=== PATIENT | female | born 1930 | race Caucasian/White ===

== ENCOUNTER 2017-07-03 18:21 | Inpatient (IN) | payer MEDICARE, OTHER ==
[~2017-07-03] VITALS: Ht 160 cm; Wt 59.9 kg
[~2017-07-03 18:21] MED LIST: ACET-1304 PO; ALBUAER3 IN; DICL1.3D21 TOP; ESOM20CA PO; FEXO-42 PO; GABA300C PO; MOME100A INH; NOR10T PO
[2017-07-03 19:16] LABS: Basophils # (auto) 0.1 uL; Basophils % (auto) 0.5 % (0.0-2.0); CONDITION Y; Eosinophils # (auto) 0.1 uL; Eosinophils % (auto) 0.6 % (0.0-7.0); Hemoglobin 12.3 g/dL (12.2-16.2); Lymphocytes # (auto) 3.5 uL; Lymphocytes % (auto) 28.7 % (10.0-50.0); Mean Corpuscular Hemoglobin 32.6 pg (28.0-32.0); Mean Corpuscular Volume 95.7 fL (80.0-100.0); Mean Platelet Volume 8.8 fL (7.4-10.4); Monocytes # (auto) 0.9 uL; Monocytes % (auto) 7.3 % (0.0-12.0); Neutrophils # (auto) 7.6 uL; Neutrophils % (auto) 62.9 % (37.0-80.0); Platelet Count (auto) 123 10^3/uL (140-450); Red Cell Distribution Width 14.5 % (11.6-16.0); SUSPECT SEE PRINTOUT
[2017-07-03 19:25] LABS: Albumin 3.7 g/dL (3.4-5.0); BUN/Creatinine Ratio 10.8; Bilirubin, Total 0.4 mg/dL (0.2-1.0); Calcium 8.9 mg/dL (8.5-10.1); Potassium 3.6 mmol/L (3.5-5.1); Total Protein 7.5 g/dL (6.4-8.2)
[2017-07-03] MEDS ORDERED: SODIUM CHLORIDE 0.9% 1,000 ML IVB ONE (20:36)
[2017-07-03 20:49] LABS: Urine RBC None Seen /hpf (0 - 4)
[2017-07-03 21:04] LABS: Urine Bilirubin Negative (Negative); Urine Blood Negative /uL (Negative); Urine Color Yellow (Yellow); Urine Glucose Normal (Normal); Urine Ketone Negative (Negative); Urine Nitrite Negative (Negative); Urine Urobilinogen Normal (Negative); Urine pH 7.5 (5.0-8.0)
[2017-07-03 21:07] LABS: Magnesium 2.4 mg/dL (1.6-2.6)
[2017-07-03 21:23] LABS: INR 0.88 (0.9-1.15); Partial Thromboplastin Time 22.6 sec (22.64-33.71); Prothrombin Time 9.6 sec (9.37-12.3)
[2017-07-03 21:34] LABS: Acetaminophen < 2.0 ug/mL (10-30); Salicylate < 1.7 mg/dL (2.8-20.0)
[2017-07-03 21:42] LABS: Platelet Clumps MANY
[2017-07-03] MEDS: SODIUM CHLORIDE 0.9% 1,000 ML IV SCH (23:03)
[2017-07-03] MEDS ORDERED: MORPHINE SULF INJ 2 MG/ML SYRINGE 1ML IV PRN (23:15)
[2017-07-03] MEDS ORDERED: ALBUTEROL SULF 2.5 MG/0.5ML(0.5%) NEB SOLN NEB PRN (23:15)
[2017-07-03] MEDS ORDERED: ACETAMINOPHEN 325 MG TAB PO PRN (23:15)
[2017-07-03] MEDS ORDERED: NITROGLYCERIN 0.4 MG SL TAB SL PRN (23:15)
[2017-07-03] MEDS ORDERED: ONDANSETRON HCL 4 MG/2 ML VIAL IV PRN (23:15)
[2017-07-04] MEDS: HYDROcodone-ACET 5/325MG TAB PO PRN ×2 (01:29→10:35)
[2017-07-04 04:24] LABS: Basophils # (auto) 0.1 uL; Eosinophils # (auto) 0 uL; Eosinophils % (auto) 0.4 % (0.0-7.0); Hematocrit 30.9 % (36.0-46.0); Hemoglobin 10.3 g/dL (12.2-16.2); Lymphocytes # (auto) 1.8 uL; Lymphocytes % (auto) 26.1 % (10.0-50.0); Mean Corpuscular Hemoglobin 32.7 pg (28.0-32.0); Mean Corpuscular Hgb Conc. 33.5 g/dL (32.0-36.0); Mean Corpuscular Volume 97.5 fL (80.0-100.0); Mean Platelet Volume 8.4 fL (7.4-10.4); Monocytes # (auto) 0.5 uL; Monocytes % (auto) 7.2 % (0.0-12.0); Neutrophils # (auto) 4.6 uL; Neutrophils % (auto) 65.3 % (37.0-80.0); Platelet Count (auto) 203 10^3/uL (140-450); Red Cell Distribution Width 13.6 % (11.6-16.0)
[2017-07-04 04:41] VITALS: BP 126/70
[2017-07-04 04:43] LABS: Potassium 4.2 mmol/L (3.5-5.1)
[2017-07-04 04:48] LABS: Albumin 3.2 g/dL (3.4-5.0); BUN/Creatinine Ratio 10.2; Bilirubin, Total 0.7 mg/dL (0.2-1.0); Calcium 8.5 mg/dL (8.5-10.1); Total Protein 6.2 g/dL (6.4-8.2)
[2017-07-04 09:00] VITALS: BP 158/71
[2017-07-04] MEDS ORDERED: FAMOTIDINE 20 MG TAB PO SCH (10:00)
[2017-07-04] MEDS ORDERED: GABAPENTIN 300 MG CAP PO SCH (10:00)
[2017-07-04] MEDS ORDERED: ENOXAPARIN SOD 40 MG/0.4 ML SYRINGE SC SCH (10:00)
[2017-07-04 10:57] VITALS: BP 158/71
[2017-07-04 13:00] VITALS: BP 152/77
[2017-07-04] MEDS: SODIUM CHLORIDE 0.9% 1,000 ML IV SCH (15:43)
[2017-07-04 17:00] VITALS: BP 136/69
== END 2017-07-04 18:55 | disposition home or self-care (01) | DRG 917 ==
LOC: EDBD 18:21 → ER 18:21 → TELE 18:22 → TELE-EAST 07-04 09:11
PROVIDERS: ADMIT Nurse Practitioner; ATTEND Family Medicine
DX: T40.2X1A Poisoning by other opioids, accidental (unintentional), initial encounter (principal); G93.41 Metabolic encephalopathy; N39.0 Urinary tract infection, site not specified; J44.9 Chronic obstructive pulmonary disease, unspecified; R41.0 Disorientation, unspecified; F17.200 Nicotine dependence, unspecified, uncomplicated; G89.29 Other chronic pain; I10 Essential (primary) hypertension; M54.5 Low back pain; K21.9 Gastro-esophageal reflux disease without esophagitis; I70.8 Atherosclerosis of other arteries; T40.2X5A Adverse effect of other opioids, initial encounter; Z90.49 Acquired absence of other specified parts of digestive tract; Z90.710 Acquired absence of both cervix and uterus; Y92.89 Other specified places as the place of occurrence of the external cause; Z87.440 Personal history of urinary (tract) infections
CPT/HCPCS: 36415; 51702; 70450; 71010; 71250; 80053; 80307; 80320; 80329; 81001; 82962; 83605; 83735; 84484; 85025; 85610; 85730; 87040; 87086; 93005; 94761; 96360

== ENCOUNTER → 2017-07-11 | Outpatient (CLI) | payer MEDICARE, OTHER ==
[2017-07-11 14:30] LABS: Temperature: 21.7 C (20.0-25.0)
== END | disposition home or self-care (01) ==
LOC: LAB 13:21
PROVIDERS: ATTEND Psychiatry & Neurology Neurology
DX: G30.9 Alzheimer's disease, unspecified (principal); R25.1 Tremor, unspecified; E53.8 Deficiency of other specified B group vitamins
CPT/HCPCS: 36415; 82607; 82746; 84439; 84443

== ENCOUNTER 2018-03-10 19:44 | Inpatient (IN) | payer MEDICARE, OTHER ==
[~2018-03-10] VITALS: Ht 157.5 cm; Wt 65.0 kg
[2018-03-10] MEDS ORDERED: LORazepam 2MG/ML-1ML VIAL ONE (21:03)
[2018-03-10] MEDS ORDERED: LORazepam 2MG/ML-1ML VIAL IV ONE (21:15)
[2018-03-10 21:29] LABS: Basophils # (auto) 0.1 uL; Basophils % (auto) 0.6 % (0.0-2.0); Eosinophils # (auto) 0 uL; Eosinophils % (auto) 0.3 % (0.0-7.0); Hematocrit 34.9 % (36.0-46.0); Hemoglobin 11.7 g/dL (12.2-16.2); Lymphocytes # (auto) 1.3 uL; Lymphocytes % (auto) 12.8 % (10.0-50.0); Mean Corpuscular Hemoglobin 31.7 pg (28.0-32.0); Mean Corpuscular Hgb Conc. 33.4 g/dL (32.0-36.0); Mean Corpuscular Volume 94.9 fL (80.0-100.0); Monocytes # (auto) 0.3 uL; Monocytes % (auto) 2.6 % (0.0-12.0); Neutrophils # (auto) 8.6 uL; Neutrophils % (auto) 83.7 % (37.0-80.0); Platelet Count (auto) 298 10^3/uL (140-450); Red Blood Cells 3.68 10^6/uL (4.0-5.20); Red Cell Distribution Width 13.2 % (11.8-14.3); White Blood Cell 10.2 10^3/uL (4.4-10.8)
[2018-03-10 21:48] LABS: Acetaminophen < 2.0 ug/mL (10-30); Salicylate < 1.7 mg/dL (2.8-20.0)
[2018-03-10 21:53] LABS: Alanine Aminotransferase 19 U/L (13-56); Albumin 3.7 g/dL (3.4-5.0); Alkaline Phosphatase 73 U/L (45-117); Anion Gap 10 (5-15); Aspartate Aminotransferase 22 U/L (15-37); BUN/Creatinine Ratio 11.9; Bilirubin, Total 0.5 mg/dL (0.2-1.0); Blood Alcohol < 3.0 mg/dL (0-5); Blood Urea Nitrogen 13 mg/dL (7-18); Calcium 8.7 mg/dL (8.5-10.1); Carbon Dioxide 26 mmol/L (21-32); Chloride 100 mmol/L (98-107); GFR African American 61 mL/min; GFR Non-African American 50 mL/min; Glucose 99 mg/dL (74-106); Magnesium 2.4 mg/dL (1.6-2.6); Potassium 3.2 mmol/L (3.5-5.1); Sodium 136 mmol/L (136-145); Total Protein 7.4 g/dL (6.4-8.2)
[2018-03-10 22:13] LABS: Urine Bacteria FEW /hpf (None Seen); Urine Blood Negative /uL (Negative); Urine WBC 9 /hpf (0 - 5)
[2018-03-10 22:28] LABS: Alcohol, Urine < 3.0 mg/dL (0-5); Amphetamine Screen, Urine NEGATIVE (NEGATIVE); Barbiturate Scree,Urine NEGATIVE (NEGATIVE); Benzodiazephine Screen, Urine NEGATIVE (NEGATIVE); Cannabinoid Screen, Urine NEGATIVE (NEGATIVE); Cocaine Screen, Urine NEGATIVE (NEGATIVE); Opiate Scree,Urine POSITIVE (NEGATIVE); Phencyclidine Screen, Urine NEGATIVE (NEGATIVE)
[2018-03-10] MEDS ORDERED: ASPirin 81 mg TAB PO ONE (23:45)
[2018-03-11] MEDS ORDERED: SODIUM CHLORIDE 0.9% 1,000 ML IV ONE (00:15)
[2018-03-11] MEDS ORDERED: NITROGLYCERIN 0.4 MG SL TAB SL PRN (00:15)
[2018-03-11] MEDS ORDERED: MORPHINE SULFATE 4 MG/ML SYR/VIAL IV PRN (00:15)
[2018-03-11] MEDS ORDERED: ONDANSETRON HCL 4 MG/2 ML VIAL IV PRN (00:15)
[2018-03-11] MEDS ORDERED: cefTRIAXone 1GM/10ml IVPUSH 10 ML IV ONE ×2 (00:15→13:15)
[2018-03-11 04:23] LABS: Basophils # (auto) 0 uL; Basophils % (auto) 0.6 % (0.0-2.0); Eosinophils # (auto) 0 uL; Eosinophils % (auto) 0.3 % (0.0-7.0); Hematocrit 33.6 % (36.0-46.0); Hemoglobin 10.9 g/dL (12.2-16.2); Lymphocytes # (auto) 2.2 uL; Lymphocytes % (auto) 26.7 % (10.0-50.0); Mean Corpuscular Hemoglobin 31.6 pg (28.0-32.0); Mean Corpuscular Hgb Conc. 32.4 g/dL (32.0-36.0); Mean Corpuscular Volume 97.5 fL (80.0-100.0); Monocytes # (auto) 0.7 uL; Monocytes % (auto) 7.9 % (0.0-12.0); Neutrophils # (auto) 5.4 uL; Neutrophils % (auto) 64.5 % (37.0-80.0); Nucleated Red Blood Cells % 0.1 %; Platelet Count (auto) 305 10^3/uL (140-450); Red Blood Cells 3.44 10^6/uL (4.0-5.20); Red Cell Distribution Width 13.6 % (11.8-14.3); White Blood Cell 8.4 10^3/uL (4.4-10.8)
[2018-03-11 04:36] LABS: Calcium 8.4 mg/dL (8.5-10.1); Potassium 3.6 mmol/L (3.5-5.1)
[2018-03-11 06:56] VITALS: BP 101/56
[2018-03-11] MEDS: ASPirin-EC 81 mg tab PO SCH (10:30)
[2018-03-11] MEDS: GABAPENTIN 300 MG CAP PO SCH ×2 (13:57→22:16)
[2018-03-11 18:10] VITALS: BP 146/74
[2018-03-11] MEDS ORDERED: OME20T PO (18:45)
[2018-03-11] MEDS ORDERED: FLUT250M2 INH (18:45)
[2018-03-11] MEDS ORDERED: CYA100I IM (18:45)
[2018-03-11] MEDS ORDERED: DONE5TAB11 PO (18:45)
[2018-03-11] MEDS ORDERED: DICL1GEL26 TD (18:45)
[2018-03-11] MEDS ORDERED: FEXO24TA9 PO (18:45)
[2018-03-11] MEDS: HYDROcodone-ACET 5/325MG TAB PO PRN (18:58)
[2018-03-11 19:50] VITALS: BP 136/78
[2018-03-11] MEDS: DONEPEZIL HYDROCHLORIDE 5 MG TAB PO SCH (22:15)
[2018-03-11] MEDS: METOPROLOL TARTRATE 25 MG TAB PO SCH (22:16)
[2018-03-12] VITALS: BP 137/64
[2018-03-12 04:00] VITALS: BP 148/67
[2018-03-12 05:53] LABS: Basophils # (auto) 0.1 uL; Basophils % (auto) 0.8 % (0.0-2.0); Eosinophils # (auto) 0.1 uL; Eosinophils % (auto) 0.8 % (0.0-7.0); Hematocrit 34.4 % (36.0-46.0); Hemoglobin 11.4 g/dL (12.2-16.2); Lymphocytes % (auto) 26.8 % (10.0-50.0); Mean Corpuscular Hemoglobin 31.5 pg (28.0-32.0); Mean Corpuscular Hgb Conc. 33.1 g/dL (32.0-36.0); Mean Corpuscular Volume 95.2 fL (80.0-100.0); Monocytes # (auto) 0.5 uL; Monocytes % (auto) 7.1 % (0.0-12.0); Neutrophils # (auto) 4.8 uL; Neutrophils % (auto) 64.5 % (37.0-80.0); Platelet Count (auto) 319 10^3/uL (140-450); Red Blood Cells 3.61 10^6/uL (4.0-5.20); Red Cell Distribution Width 13.4 % (11.8-14.3); White Blood Cell 7.4 10^3/uL (4.4-10.8)
[2018-03-12] MEDS: GABAPENTIN 300 MG CAP PO SCH ×3 (06:01→21:27)
[2018-03-12 06:02] LABS: Albumin 3.1 g/dL (3.4-5.0); BUN/Creatinine Ratio 10.6; Calcium 8.7 mg/dL (8.5-10.1); Potassium 3.3 mmol/L (3.5-5.1)
[2018-03-12] MEDS: MORPHINE SULFATE 4 MG/ML SYR/VIAL IV PRN (06:03)
[2018-03-12 06:05] LABS: Bilirubin, Total 0.5 mg/dL (0.2-1.0); Total Protein 6.5 g/dL (6.4-8.2)
[2018-03-12 08:00] VITALS: BP 147/70
[2018-03-12] MEDS: cefTRIAXone 1GM/10ml IVPUSH 10 ML IV SCH (09:26)
[2018-03-12] MEDS: ASPirin-EC 81 mg tab PO SCH (10:23)
[2018-03-12] MEDS: ENOXAPARIN SOD 30 MG/0.3 ML SYRINGE SC SCH (10:23)
[2018-03-12] MEDS: METOPROLOL TARTRATE 25 MG TAB PO SCH ×2 (10:24→21:26)
[2018-03-12] MEDS: HYDROcodone-ACET 5/325MG TAB PO PRN ×2 (10:24→16:59)
[2018-03-12] MEDS ORDERED: POTASSIUM CHLORIDE 8 MEQ TAB PO ONE (10:45)
[2018-03-12 11:50] VITALS: BP 148/88
[2018-03-12] MEDS ORDERED: BOOST PLUS 8 ounce PO SCH (12:00)
[2018-03-12 15:49] VITALS: BP 137/75
[2018-03-12] MEDS: ALBUTEROL SULF 2.5 MG/0.5ML(0.5%) NEB SOLN NEB PRN (18:11)
[2018-03-12 19:50] VITALS: BP 144/61
[2018-03-12] MEDS: DONEPEZIL HYDROCHLORIDE 5 MG TAB PO SCH (21:26)
[2018-03-12] MEDS: ACETAMINOPHEN 500 MG TAB PO PRN (21:27)
[2018-03-13] VITALS: BP 128/60
[2018-03-13] MEDS: HYDROcodone-ACET 5/325MG TAB PO PRN ×3 (03:31→12:08)
[2018-03-13 04:00] VITALS: BP 140/68
[2018-03-13] MEDS: GABAPENTIN 300 MG CAP PO SCH ×3 (05:55→22:00)
[2018-03-13 05:59] LABS: Basophils # (auto) 0.1 uL; Basophils % (auto) 1.2 % (0.0-2.0); Eosinophils # (auto) 0.1 uL; Eosinophils % (auto) 1.1 % (0.0-7.0); Hematocrit 34.4 % (36.0-46.0); Hemoglobin 11.3 g/dL (12.2-16.2); Lymphocytes # (auto) 2.1 uL; Lymphocytes % (auto) 29.2 % (10.0-50.0); Mean Corpuscular Hemoglobin 31.3 pg (28.0-32.0); Mean Corpuscular Hgb Conc. 32.9 g/dL (32.0-36.0); Mean Corpuscular Volume 94.9 fL (80.0-100.0); Monocytes # (auto) 0.6 uL; Neutrophils # (auto) 4.3 uL; Neutrophils % (auto) 60.5 % (37.0-80.0); Platelet Count (auto) 308 10^3/uL (140-450); Red Blood Cells 3.62 10^6/uL (4.0-5.20); Red Cell Distribution Width 13.4 % (11.8-14.3); White Blood Cell 7.2 10^3/uL (4.4-10.8)
[2018-03-13 06:26] LABS: Albumin 3.1 g/dL (3.4-5.0); BUN/Creatinine Ratio 12.8; Bilirubin, Total 0.6 mg/dL (0.2-1.0); Calcium 8.8 mg/dL (8.5-10.1); Potassium 3.5 mmol/L (3.5-5.1); Total Protein 6.6 g/dL (6.4-8.2)
[2018-03-13 07:37] VITALS: BP 158/65
[2018-03-13] MEDS: cefTRIAXone 1GM/10ml IVPUSH 10 ML IV SCH (07:48)
[2018-03-13] MEDS: ASPirin-EC 81 mg tab PO SCH (10:13)
[2018-03-13] MEDS: ENOXAPARIN SOD 30 MG/0.3 ML SYRINGE SC SCH (10:13)
[2018-03-13] MEDS: METOPROLOL TARTRATE 25 MG TAB PO SCH ×2 (10:13→22:00)
[2018-03-13 11:56] VITALS: BP 159/81
[2018-03-13] MEDS ORDERED: PANTOPRAZOLE 40 MG TAB PO ONE (15:00)
[2018-03-13 15:49] VITALS: BP 142/84
[2018-03-13 19:48] VITALS: BP 135/77
[2018-03-13] MEDS: FLECTOR 1.3% TD SCH (22:00)
[2018-03-13] MEDS: DONEPEZIL HYDROCHLORIDE 5 MG TAB PO SCH (22:00)
[2018-03-14] VITALS (7 sets, daily range): BP systolic 104–135; BP diastolic 46–75
[2018-03-14] MEDS ORDERED: MORPHINE SULFATE INJECTION 1 ML ONE (05:12)
[2018-03-14 05:19] LABS: Basophils # (auto) 0.1 uL; Basophils % (auto) 1.1 % (0.0-2.0); Eosinophils # (auto) 0.1 uL; Eosinophils % (auto) 1.2 % (0.0-7.0); Hematocrit 35.3 % (36.0-46.0); Hemoglobin 11.8 g/dL (12.2-16.2); Lymphocytes # (auto) 2.6 uL; Lymphocytes % (auto) 27.4 % (10.0-50.0); Mean Corpuscular Hemoglobin 31.8 pg (28.0-32.0); Mean Corpuscular Hgb Conc. 33.5 g/dL (32.0-36.0); Mean Corpuscular Volume 95.1 fL (80.0-100.0); Monocytes # (auto) 0.9 uL; Neutrophils # (auto) 5.9 uL; Neutrophils % (auto) 61.3 % (37.0-80.0); Platelet Count (auto) 275 10^3/uL (140-450); Red Blood Cells 3.72 10^6/uL (4.0-5.20); Red Cell Distribution Width 13.2 % (11.8-14.3); White Blood Cell 9.6 10^3/uL (4.4-10.8)
[2018-03-14] MEDS: MORPHINE SULFATE 4 MG/ML SYR/VIAL IV PRN (05:20)
[2018-03-14 05:31] LABS: Albumin 3.1 g/dL (3.4-5.0); Calcium 9.1 mg/dL (8.5-10.1); Potassium 3.7 mmol/L (3.5-5.1)
[2018-03-14 05:33] LABS: BUN/Creatinine Ratio 10.8
[2018-03-14 05:38] LABS: Bilirubin, Total 0.5 mg/dL (0.2-1.0); Total Protein 6.9 g/dL (6.4-8.2)
[2018-03-14] MEDS: GABAPENTIN 300 MG CAP PO SCH ×3 (05:44→21:33)
[2018-03-14] MEDS: ENOXAPARIN SOD 30 MG/0.3 ML SYRINGE SC SCH (09:54)
[2018-03-14] MEDS: PANTOPRAZOLE 40 MG TAB PO SCH (09:55)
[2018-03-14] MEDS: ASPirin-EC 81 mg tab PO SCH (09:55)
[2018-03-14] MEDS: cefTRIAXone 1GM/10ml IVPUSH 10 ML IV SCH (09:56)
[2018-03-14] MEDS: METOPROLOL TARTRATE 25 MG TAB PO SCH ×2 (09:56→21:33)
[2018-03-14] MEDS: FLECTOR 1.3% TD SCH (09:57)
[2018-03-14] MEDS: ACETAMINOPHEN 500 MG TAB PO PRN (11:18)
[2018-03-14] MEDS: HYDROcodone-ACET 5/325MG TAB PO PRN ×2 (14:56→21:42)
[2018-03-14] MEDS: ATORVASTATIN 20 MG TAB PO SCH (21:32)
[2018-03-14] MEDS: DONEPEZIL HYDROCHLORIDE 5 MG TAB PO SCH (21:32)
[2018-03-15] MEDS: ALBUTEROL SULF 2.5 MG/0.5ML(0.5%) NEB SOLN NEB PRN (00:43)
[2018-03-15 05:16] VITALS: BP 129/54
[2018-03-15] MEDS: GABAPENTIN 300 MG CAP PO SCH ×3 (05:19→21:31)
[2018-03-15] MEDS: HYDROcodone-ACET 5/325MG TAB PO PRN ×3 (05:20→21:31)
[2018-03-15 07:34] VITALS: BP 122/70
[2018-03-15] MEDS: FLECTOR 1.3% TD SCH (10:00)
[2018-03-15] MEDS: ASPirin-EC 81 mg tab PO SCH (10:44)
[2018-03-15] MEDS: METOPROLOL TARTRATE 25 MG TAB PO SCH ×2 (10:46→21:31)
[2018-03-15] MEDS: ENOXAPARIN SOD 30 MG/0.3 ML SYRINGE SC SCH (10:46)
[2018-03-15] MEDS: PANTOPRAZOLE 40 MG TAB PO SCH (10:46)
[2018-03-15 11:50] VITALS: BP 116/68
[2018-03-15 16:35] VITALS: BP 136/90
[2018-03-15] MEDS: DONEPEZIL HYDROCHLORIDE 5 MG TAB PO SCH (21:30)
[2018-03-15] MEDS: ATORVASTATIN 20 MG TAB PO SCH (21:30)
[2018-03-15 22:04] VITALS: BP 131/55
[2018-03-16] MEDS: ALBUTEROL SULF 2.5 MG/0.5ML(0.5%) NEB SOLN NEB PRN ×3 (00:40→19:12)
[2018-03-16 05:16] VITALS: BP 117/70
[2018-03-16] MEDS: GABAPENTIN 300 MG CAP PO SCH ×3 (05:47→22:10)
[2018-03-16] MEDS: HYDROcodone-ACET 5/325MG TAB PO PRN ×4 (05:47→22:25)
[2018-03-16 08:00] VITALS: BP 119/66
[2018-03-16] MEDS: PANTOPRAZOLE 40 MG TAB PO SCH (10:23)
[2018-03-16] MEDS: ASPirin-EC 81 mg tab PO SCH (10:23)
[2018-03-16] MEDS: METOPROLOL TARTRATE 25 MG TAB PO SCH ×2 (10:23→22:12)
[2018-03-16] MEDS: ENOXAPARIN SOD 30 MG/0.3 ML SYRINGE SC SCH (10:24)
[2018-03-16] MEDS: FLECTOR 1.3% TD SCH (10:25)
[2018-03-16 13:01] VITALS: BP 118/67
[2018-03-16 16:33] VITALS: BP 171/89
[2018-03-16 17:23] VITALS: BP 121/65
[2018-03-16] MEDS: ACETAMINOPHEN 500 MG TAB PO PRN (20:09)
[2018-03-16 22:00] VITALS: BP 124/74
[2018-03-16] MEDS: ATORVASTATIN 20 MG TAB PO SCH (22:10)
[2018-03-16] MEDS: DONEPEZIL HYDROCHLORIDE 5 MG TAB PO SCH (22:10)
[2018-03-17 04:35] VITALS: BP 127/64
[2018-03-17] MEDS: GABAPENTIN 300 MG CAP PO SCH ×3 (06:27→22:15)
[2018-03-17] MEDS: ACETAMINOPHEN 500 MG TAB PO PRN (06:27)
[2018-03-17 07:17] VITALS: BP 127/64
[2018-03-17 09:00] VITALS: BP 119/57
[2018-03-17] MEDS ORDERED: MORPHINE SULFATE 8mg/ml INJ SDV IV PRN ×2 (09:30)
[2018-03-17] MEDS: PANTOPRAZOLE 40 MG TAB PO SCH (09:54)
[2018-03-17] MEDS: ASPirin-EC 81 mg tab PO SCH (09:54)
[2018-03-17] MEDS: METOPROLOL TARTRATE 25 MG TAB PO SCH ×2 (09:54→22:15)
[2018-03-17] MEDS: ENOXAPARIN SOD 30 MG/0.3 ML SYRINGE SC SCH (09:55)
[2018-03-17] MEDS: FLECTOR 1.3% TD SCH (09:56)
[2018-03-17 13:00] VITALS: BP 109/57
[2018-03-17 17:00] VITALS: BP 112/52
[2018-03-17] MEDS: HYDROcodone-ACET 5/325MG TAB PO PRN ×2 (17:08→22:43)
[2018-03-17] MEDS: BOOST PLUS 8 ounce PO SCH (18:00)
[2018-03-17 21:25] VITALS: BP 125/74
[2018-03-17] MEDS: DONEPEZIL HYDROCHLORIDE 5 MG TAB PO SCH (22:14)
[2018-03-17] MEDS: ATORVASTATIN 20 MG TAB PO SCH (22:14)
[2018-03-18] MEDS: HYDROcodone-ACET 5/325MG TAB PO PRN ×4 (04:26→21:31)
[2018-03-18 04:39] VITALS: BP 103/53
[2018-03-18] MEDS: GABAPENTIN 300 MG CAP PO SCH ×3 (05:55→21:27)
[2018-03-18] MEDS: ALBUTEROL SULF 2.5 MG/0.5ML(0.5%) NEB SOLN NEB PRN ×2 (07:58→17:46)
[2018-03-18] MEDS: BOOST PLUS 8 ounce PO SCH ×2 (08:00→18:00)
[2018-03-18 09:00] VITALS: BP 119/62
[2018-03-18] MEDS: ASPirin-EC 81 mg tab PO SCH (09:57)
[2018-03-18] MEDS: PANTOPRAZOLE 40 MG TAB PO SCH (09:57)
[2018-03-18] MEDS: ENOXAPARIN SOD 30 MG/0.3 ML SYRINGE SC SCH (09:57)
[2018-03-18] MEDS: METOPROLOL TARTRATE 25 MG TAB PO SCH ×2 (09:58→21:29)
[2018-03-18] MEDS: FLECTOR 1.3% TD SCH (09:58)
[2018-03-18 13:00] VITALS: BP 115/63
[2018-03-18 17:00] VITALS: BP 102/39
[2018-03-18] MEDS: ATORVASTATIN 20 MG TAB PO SCH (21:28)
[2018-03-18 21:57] VITALS: BP 104/55
[2018-03-18] MEDS: DONEPEZIL HYDROCHLORIDE 5 MG TAB PO SCH (22:00)
[2018-03-19] MEDS: HYDROcodone-ACET 5/325MG TAB PO PRN ×2 (03:49→13:53)
[2018-03-19 04:50] VITALS: BP 119/62
[2018-03-19] MEDS: GABAPENTIN 300 MG CAP PO SCH ×2 (07:00→13:52)
[2018-03-19 07:20] VITALS: BP 108/69
[2018-03-19] MEDS: BOOST PLUS 8 ounce PO SCH (08:00)
[2018-03-19] MEDS: ALBUTEROL SULF 2.5 MG/0.5ML(0.5%) NEB SOLN NEB PRN (09:20)
[2018-03-19] MEDS: ASPirin-EC 81 mg tab PO SCH (09:55)
[2018-03-19] MEDS: PANTOPRAZOLE 40 MG TAB PO SCH (09:55)
[2018-03-19] MEDS: ENOXAPARIN SOD 30 MG/0.3 ML SYRINGE SC SCH (09:56)
[2018-03-19] MEDS: FLECTOR 1.3% TD SCH (09:56)
[2018-03-19] MEDS: METOPROLOL TARTRATE 25 MG TAB PO SCH (10:00)
[2018-03-19 11:46] VITALS: BP 106/61
[2018-03-19 15:03] VITALS: BP 106/61
[2018-03-19 16:00] VITALS: BP 108/59
== END 2018-03-19 16:54 | DRG 281 ==
LOC: EDBD 19:44 → ER 19:51 → TELE 19:52 → DOU IN ICU 03-11 18:40 → TELE-WESTW 03-14 14:38
PROVIDERS: ADMIT Nurse Practitioner Family; ATTEND Internal Medicine Pulmonary Disease
DX: I21.4 Non-ST elevation (NSTEMI) myocardial infarction (principal); N39.0 Urinary tract infection, site not specified; E44.0 Moderate protein-calorie malnutrition; D68.69 Other thrombophilia; I47.1 Supraventricular tachycardia; J44.9 Chronic obstructive pulmonary disease, unspecified; E87.6 Hypokalemia; I12.9 Hypertensive chronic kidney disease with stage 1 through stage 4 chronic kidney disease, or unspecified chronic kidney disease; D63.8 Anemia in other chronic diseases classified elsewhere; F03.90 Unspecified dementia, unspecified severity, without behavioral disturbance, psychotic disturbance, mood disturbance, and anxiety; N18.2 Chronic kidney disease, stage 2 (mild); Z90.710 Acquired absence of both cervix and uterus; Z68.26 Body mass index [BMI] 26.0-26.9, adult; Z90.49 Acquired absence of other specified parts of digestive tract
CPT/HCPCS: 36415; 51702; 70450; 71045; 80048; 80053; 80307; 80320; 80329; 81001; 82962; 83605; 83735; 84484; 85025; 87040; 87086; 93005; 93306; 94640; 96361; 96374; 96375; J2270

== ENCOUNTER 2019-05-11 05:52 | Inpatient (IN) | payer MEDICARE, OTHER ==
[~2019-05-11] VITALS: Ht 170.2 cm; Wt 45.5 kg
[~2019-05-11 05:52] MED LIST changes: -ACET-1304 PO; -ALBUAER3 IN; +ATO40T PO; +CAR3125T PO; +CYA100I IM; -ESOM20CA PO; -FEXO-42 PO; -GABA300C PO; -MOME100A INH; +PANT40T PO
[2019-05-11 07:16] LABS: Basophils # (auto) 0.1 uL; Basophils % (auto) 0.8 % (0.0-2.0); Eosinophils # (auto) 0.1 uL; Eosinophils % (auto) 0.8 % (0.0-7.0); Hematocrit 34.3 % (36.0-46.0); Hemoglobin 10.9 g/dL (12.2-16.2); Lymphocytes # (auto) 2.1 uL; Lymphocytes % (auto) 19.9 % (10.0-50.0); Mean Corpuscular Hemoglobin 30.6 pg (28.0-32.0); Mean Corpuscular Hgb Conc. 31.9 g/dL (32.0-36.0); Mean Corpuscular Volume 95.9 fL (80.0-100.0); Monocytes # (auto) 0.5 uL; Monocytes % (auto) 4.8 % (0.0-12.0); Neutrophils # (auto) 7.8 uL; Neutrophils % (auto) 73.7 % (37.0-80.0); Nucleated Red Blood Cells % 0.1 %; Platelet Count (auto) 197 10^3/uL (140-450); Red Blood Cells 3.57 10^6/uL (4.0-5.20); Red Cell Distribution Width 14.7 % (11.8-14.3); White Blood Cell 10.6 10^3/uL (4.4-10.8)
[2019-05-11] MEDS ORDERED: MORPHINE SULFATE 4 MG/ML SYR/VIAL IV ONE (07:30)
[2019-05-11] MEDS ORDERED: ONDANSETRON HCL 4 MG/2 ML VIAL IV ONE (07:30)
[2019-05-11 07:34] LABS: Albumin 2.4 g/dL (3.4-5.0); Anion Gap 14 (5-15); Blood Urea Nitrogen 15 mg/dL (7-18); Calcium 8.7 mg/dL (8.5-10.1); Carbon Dioxide 24 mmol/L (21-32); Chloride 106 mmol/L (98-107); Glucose 68 mg/dL (74-106); Potassium 3.7 mmol/L (3.5-5.1); Sodium 144 mmol/L (136-145)
[2019-05-11 07:38] LABS: Alanine Aminotransferase 32 U/L (13-56); Aspartate Aminotransferase 38 U/L (15-37); BUN/Creatinine Ratio 16.7; GFR African American 76 mL/min; GFR Non-African American 63 mL/min
[2019-05-11 07:42] LABS: Alkaline Phosphatase 147 U/L (45-117); Bilirubin, Total 0.8 mg/dL (0.2-1.0); Total Protein 6.6 g/dL (6.4-8.2)
[2019-05-11 09:08] LABS: Urine Bacteria NONE SEEN /hpf (None Seen); Urine Blood 3+ /uL (Negative); Urine WBC 2314 /hpf (0 - 5); Urine WBC Clumps PRESENT /hpf (None Seen)
[2019-05-11] MEDS ORDERED: LORazepam 2MG/ML-1ML VIAL IV ONE (09:30)
[2019-05-11] MEDS ORDERED: cefTRIAXone 1GM/50ML D5W 50 ML IV ONE (12:00)
[2019-05-11] MEDS ORDERED: LACTULOSE 20Gm/30ML SOLN PO PRN (12:00)
[2019-05-11] MEDS ORDERED: MORPHINE SULF INJ 2 MG/ML SYRINGE 1ML IV PRN (12:00)
[2019-05-11] MEDS ORDERED: ONDANSETRON HCL 4 MG/2 ML VIAL IV PRN (12:00)
[2019-05-11] MEDS ORDERED: NITROGLYCERIN 0.4 MG SL TAB SL PRN (12:00)
[2019-05-11] MEDS: SODIUM CHLORIDE 0.9% 1,000 ML IV SCH (12:33)
--- NOTE | 2019-05-11 15:30 | NUR ---
Telemetry admit from ER MOREIR[place]ONID admitted to Telemetry unit after SBAR received. Patient oriented to SHANE JIMÉNEZ, primary RN, unit, room, bed, and unit policies regarding patient care and visiting hours. Patient now on continuous telemetry monitoring, tele box # 32 and telemetry reading on arrival to unit is 99. Patient placed on bedside oxygen, weighed by bed scale and encouraged to call if they need something. All questions and concerns addressed, patient verbalized understanding. Note: []
[2019-05-11] MEDS: traMADol HCL 50 MG TAB PO PRN (16:39)
[2019-05-11 16:56] VITALS: BP 94/55
--- NOTE | 2019-05-11 19:45 | NUR ---
Opening Shift Note Assumed care of patient, awake and oriented to self only. No S/S of distress/SOB or pain. Patient on 2L nasal canula and gregory draining clear, yellow urine to gravity. Bed locked in lowest position, side rails upx2, call light within reach. Instructed on POC and to call for assist PRN, will continue to monitor for changes Q1hr and PRN.
[2019-05-11] MEDS: ATORVASTATIN 20 MG TAB PO SCH (21:39)
[2019-05-11] MEDS: CARVEDILOL 3.125 MG TAB PO SCH (21:39)
[2019-05-11 22:00] VITALS: BP 96/54
[2019-05-12] MEDS: SODIUM CHLORIDE 0.9% 1,000 ML IV SCH ×3 (00:22→22:12)
[2019-05-12 05:00] VITALS: BP 100/50
[2019-05-12 08:03] VITALS: BP 112/57
[2019-05-12 09:00] VITALS: BP 112/57
[2019-05-12] MEDS: cefTRIAXone 1GM/50ML D5W 50 ML IV SCH (09:17)
[2019-05-12] MEDS: PANTOPRAZOLE 40 MG TAB PO SCH (09:17)
[2019-05-12] MEDS: ASPirin 81 mg TAB PO SCH (09:17)
[2019-05-12] MEDS: ENOXAPARIN SOD 30 MG/0.3 ML SYRINGE SC SCH (09:18)
[2019-05-12] MEDS: CARVEDILOL 3.125 MG TAB PO SCH ×2 (09:19→22:00)
[2019-05-12] MEDS: traMADol HCL 50 MG TAB PO PRN (09:24)
[2019-05-12 13:00] VITALS: BP 102/49
[2019-05-12] MEDS ORDERED: MORPHINE SULF INJ 2 MG/ML SYRINGE 1ML IV PRN (15:15)
[2019-05-12 16:44] VITALS: BP 101/44
[2019-05-12] MEDS: CALCIUM W/VIT D (600MG/400IU) TAB PO SCH (18:00)
[2019-05-12 22:00] VITALS: BP 109/47
[2019-05-12] MEDS: DexAMETHasone 4 MG TAB PO SCH (22:00)
[2019-05-12] MEDS: ACETAMINOPHEN 500 MG TAB PO PRN (22:00)
[2019-05-12] MEDS: ATORVASTATIN 20 MG TAB PO SCH (22:00)
[2019-05-12] MEDS: SENNA 8.6 MG TAB PO SCH (22:01)
[2019-05-12] MEDS: TEMAZEPAM 15 MG CAP PO PRN (22:01)
[2019-05-12] MEDS: MORPHINE SULF 15mg ER tab PO SCH (22:02)
[2019-05-12] MEDS: HYDROcodone-ACET 7.5/325MG TAB PO PRN (23:00)
[2019-05-13 05:17] VITALS: BP 90/39
[2019-05-13 05:18] VITALS: BP 85/42
[2019-05-13 08:00] VITALS: BP 96/41
[2019-05-13] MEDS: MORPHINE SULF 15mg ER tab PO SCH ×2 (09:14→21:27)
[2019-05-13] MEDS: cefTRIAXone 1GM/50ML D5W 50 ML IV SCH (09:14)
[2019-05-13] MEDS: ENOXAPARIN SOD 30 MG/0.3 ML SYRINGE SC SCH (09:15)
[2019-05-13] MEDS: ASPirin 81 mg TAB PO SCH (09:15)
[2019-05-13] MEDS: PANTOPRAZOLE 40 MG TAB PO SCH (09:16)
[2019-05-13] MEDS: CALCIUM W/VIT D (600MG/400IU) TAB PO SCH ×2 (09:16→17:59)
[2019-05-13] MEDS: DexAMETHasone 4 MG TAB PO SCH ×2 (09:18→21:26)
[2019-05-13] MEDS: CARVEDILOL 3.125 MG TAB PO SCH ×2 (09:19→21:25)
[2019-05-13 12:00] VITALS: BP 93/42
[2019-05-13] MEDS ORDERED: LIDOCAINE 5% TOPICAL PATCH TOP ONE (14:30)
--- NOTE | 2019-05-13 15:13 | NUR ---
I faxed transfer order to [facility], Dr. Dunham spoke with Dr. Hong who is willing to accept this patient.
[2019-05-13 16:00] VITALS: BP 86/41
[2019-05-13] MEDS: POTASSIUM CHLORIDE 20 MEQ in D5W 5% 1,000 ML IV SCH (16:37)
--- NOTE | 2019-05-13 16:51 | NUR ---
I called [facility] [phone] and phone rang and rang several times-no answer-I tried 3 different times to call to try to speak with greenhouse specialist to see if they had a bed for this patient.
[2019-05-13] MEDS: ACETAMINOPHEN 500 MG TAB PO PRN (17:59)
--- NOTE | 2019-05-13 19:25 | NUR ---
Opening Shift Note Assumed care of patient, awake and alert. Pt complaining of severe pain to arms, neck and back. Instructed on POC and to call for assist as needed. Pt is laying in bed with the side rails up x2 and the bed is locked in the lowest position. Call light is within reach. Kim catheter is in place with bag hanging below bladder. Will continue to monitor.
[2019-05-13] MEDS: ATORVASTATIN 20 MG TAB PO SCH (21:26)
[2019-05-13] MEDS: SENNA 8.6 MG TAB PO SCH (21:27)
[2019-05-13] MEDS: TEMAZEPAM 15 MG CAP PO PRN (21:28)
[2019-05-13 22:00] VITALS: BP 87/38
[2019-05-14] MEDS: POTASSIUM CHLORIDE 20 MEQ in D5W 5% 1,000 ML IV SCH ×2 (03:57→17:26)
[2019-05-14 05:00] VITALS: BP 104/48
--- NOTE | 2019-05-14 07:45 | NUR ---
RECEIVED REPORT AND ASSUME CARE OF PT. PT RESTING IN BED. NO S/S ACUTE DISTRESS NOTED. BED AT LOWEST POSITION. CALL LIGHT AND BELONGINGS WITHIN REACH. WILL CONT TO MONITOR.
[2019-05-14 08:17] VITALS: BP 96/55
--- NOTE | 2019-05-14 08:43 | NUR ---
I called [facility] [phone] and left message for housekeeper/laundry assistant to call me back regarding fax receipt and bed availability.
[2019-05-14] MEDS: MORPHINE SULF 15mg ER tab PO SCH ×2 (09:11→22:08)
[2019-05-14] MEDS: DexAMETHasone 4 MG TAB PO SCH ×2 (09:11→22:07)
[2019-05-14] MEDS: PANTOPRAZOLE 40 MG TAB PO SCH (09:11)
[2019-05-14] MEDS: ASPirin 81 mg TAB PO SCH (09:12)
[2019-05-14] MEDS: CALCIUM W/VIT D (600MG/400IU) TAB PO SCH ×2 (09:15→18:28)
[2019-05-14] MEDS ORDERED: SODIUM CHLORIDE 0.9% 500 ML IV ONE (09:15)
[2019-05-14] MEDS: ENOXAPARIN SOD 30 MG/0.3 ML SYRINGE SC SCH (09:16)
[2019-05-14] MEDS: LEVOFLOXACIN 500MG 100 ML IV SCH (09:16)
[2019-05-14] MEDS: LIDOCAINE 5% TOPICAL PATCH TOP SCH (09:17)
--- NOTE | 2019-05-14 09:20 | NUR ---
I received a call from [facility] bath house attendant Bianca, she said they do not have a bed at this time, she is requesting that the face sheet be re-faxed. Addendum: 05/14/19 at 1018 by Rhonda Mendez RN Re-faxed face sheet to [facility].
[2019-05-14] MEDS ORDERED: HALOPERIDOL 1 MG TAB PO PRN (09:45)
[2019-05-14] MEDS: CARVEDILOL 3.125 MG TAB PO SCH ×2 (10:00→22:00)
--- NOTE | 2019-05-14 11:33 | NUR ---
Nutrition Assessment Notes please see attached link for complete assessment Est. Needs BW [id number] kcal (25-30 kcal/kgBW), 63-75 gms pro (1.0-1.2 gms/kgBW). Will continue to monitor pertinent labs and reassess nutrient need prn Addendum: 05/14/19 at [address] Amended: Links added.
[2019-05-14] MEDS: HYDROcodone-ACET 7.5/325MG TAB PO PRN ×2 (11:49→18:29)
[2019-05-14 11:54] VITALS: BP 99/53
[2019-05-14] MEDS: traMADol HCL 50 MG TAB PO PRN (14:37)
[2019-05-14] MEDS ORDERED: AMPICILLIN INJ 500 MG in SODIUM CHL 0.9% 50 ML IV ONE (15:45)
[2019-05-14 16:34] VITALS: BP 111/52
[2019-05-14] MEDS: LORazepam 0.5 MG TAB PO PRN (17:11)
--- NOTE | 2019-05-14 19:45 | NUR ---
Opening Shift Note Assumed care of patient, awake and oriented to self and situation, reoriented to time and place. On oxygen at 2L via NC with even and unlabored respirations, no S/S of distress or SOB.Kim intact and draining to gravity with clear yellow urine. Noted closed healed incisions ti mid lower abd, dmitry clean, dry and intact. Iv to right AC 20g intact and patent infusing IVF per orders. Patient turned with minimal assistance, sacrum intact, no redness noted. Sacral Optifoam in place as preventative. Patient turned and repositioned. Bed low locked position with side rails up x 3 and call light within reach, bed alarm on. Instructed on POC and to call for assist PRN, will continue to monitor for changes Q1hr and PRN.
[2019-05-14] MEDS: ACETAMINOPHEN 500 MG TAB PO PRN (19:51)
[2019-05-14 22:00] VITALS: BP 107/51
[2019-05-14] MEDS: ATORVASTATIN 20 MG TAB PO SCH (22:05)
[2019-05-14] MEDS: SENNA 8.6 MG TAB PO SCH (22:05)
[2019-05-15] MEDS: AMPICILLIN INJ 500 MG in SODIUM CHL 0.9% 50 ML IV SCH ×4 (00:13→18:01)
[2019-05-15] MEDS: HYDROcodone-ACET 7.5/325MG TAB PO PRN (00:20)
[2019-05-15 06:04] VITALS: BP 132/64
[2019-05-15] MEDS: POTASSIUM CHLORIDE 20 MEQ in D5W 5% 1,000 ML IV SCH (06:54)
[2019-05-15] MEDS: traMADol HCL 50 MG TAB PO PRN (06:57)
--- NOTE | 2019-05-15 07:00 | NUR ---
Closing note patient awake resting in bed with oxygen on at 2L via NC, no s/s of distress. Bed low locked position with side rails up x 2 and call light within reach, bed alarm on. Endorsed care to day shift RN.
--- NOTE | 2019-05-15 07:40 | NUR ---
PATIENT ROUNDS PATIENT LYING IN BED, NO DISTRESS NOTED, BED IN LOWEST POSITION, SIDE RAILS UP X2 CALL LIGHT WITHIN REACH. ALL QUESTIONS AND CONCERNS ADDRESSED. WILL CONTINUE TO MONITOR AND INITIATE PLAN OF CARE.
[2019-05-15 08:00] VITALS: BP 130/58
--- NOTE | 2019-05-15 08:47 | NUR ---
I called [facility] and left message for housekeeper hospital asking about bed availability-awaiting return call.
[2019-05-15] MEDS: LEVOFLOXACIN 500MG 100 ML IV SCH (10:22)
[2019-05-15] MEDS: LIDOCAINE 5% TOPICAL PATCH TOP SCH (10:22)
[2019-05-15] MEDS: CALCIUM W/VIT D (600MG/400IU) TAB PO SCH ×2 (10:23→18:01)
[2019-05-15] MEDS: ASPirin 81 mg TAB PO SCH (10:23)
[2019-05-15] MEDS: ENOXAPARIN SOD 30 MG/0.3 ML SYRINGE SC SCH (10:23)
[2019-05-15] MEDS: CARVEDILOL 3.125 MG TAB PO SCH ×2 (10:24→22:00)
[2019-05-15] MEDS: MORPHINE SULF 15mg ER tab PO SCH ×2 (10:24→21:35)
[2019-05-15] MEDS: PANTOPRAZOLE 40 MG TAB PO SCH (10:24)
[2019-05-15] MEDS: DexAMETHasone 4 MG TAB PO SCH ×2 (10:24→21:31)
--- NOTE | 2019-05-15 11:05 | NUR ---
IV insertion IV access obtained, via clean sterile technique by inserting 22 gauge catheter at RIGHT WRIST after 2 attempt(s). IV secured properly. No trauma to site. Patient tolerated well. NOTE:
--- NOTE | 2019-05-15 11:08 | NUR ---
IV removal IV DC'd with clean sterile technique, catheter fully intact. Pressure dressing applied to site. Patient tolerated well. NOTE:
--- NOTE | 2019-05-15 11:09 | NUR ---
DR FAIRBANKS AT BEDSIDE, STILL PENDING BED PLACEMENT FOR [facility].
[2019-05-15 13:00] VITALS: BP 134/59
--- NOTE | 2019-05-15 13:10 | NUR ---
I faxed clinical information/transfer request to [facility]. I received a call from warehouse receiving supervisor Bianca at [facility] letting me know that there are no beds available at this time.
--- NOTE | 2019-05-15 13:48 | NUR ---
I called [facility] [phone] ext [phone] and spoke with Tracey in Admitting (direct number [phone])- I provided her with clinical information verbally and need to transfer-also faxed clinical information per her request to [phone]-she will present the information to Dr. Henning and give me a call back to let me know if they are able to accept this patient.
--- NOTE | 2019-05-15 14:56 | NUR ---
I received a call from Tracey in Admitting at [facility] letting me know that Dr. Henning is accepting this patient, she is just waiting for a bed assignment. I called Dr. Dunham to let her know that they have accepted the patient.
--- NOTE | 2019-05-15 15:49 | NUR ---
FAMILY CALLED AND SPOKE WITH PATIENTS DAUGHTER JAIME AFTER CORRECT PASSWORD GIVEN. PRAFUL UPDATED ON ACCEPTANCE TO [facility] WITH ACCEPTING MD DR ELIZABETH. ALL QUESTIONS ADDRESSED.
--- NOTE | 2019-05-15 16:01 | NUR ---
assessment Patient is a 88 year old female who is confused. Prior to admission patient was at [facility] per her daughter Lucie [phone]. Patient prior to KW was at a board and care called [facility] and Lucie forgot the rest of the name. Lucie gives permission for patient to be transferred to higher level of care. I informed Lucie I will keep in touch with the progress of transfer. Lucie verbalized understanding and agreed to discharge plan for transfer. Addendum: 05/15/19 at 1609 by Felisha MURRY Amended: Links added.
[2019-05-15 16:47] VITALS: BP 127/60
--- NOTE | 2019-05-15 17:45 | NUR ---
I called [facility] and spoke with Faith, placed them on will call pending transfer to [facility]-Medicare form already faxed to [facility].
[2019-05-15] MEDS: ACETAMINOPHEN 500 MG TAB PO PRN (18:02)
--- NOTE | 2019-05-15 19:40 | NUR ---
Opening Shift Note Assumed care of patient, awake and oriented to self and place, reoriented to time and situation. Patient has frequent periods of forgetfulness and repetitive, follows directions, clear speech. On oxygen at 2L via NC with even and unlabored respirations, no S/S of distress or SOB. Kim intact and draining to gravity with clear yellow urine. Patient had lower anterior resection rectal prolapse surgery April 16 at per medical records, noted closed healed incisions with dmitry intact to mid lower abd, no redness noted, dressing intact. IV to right wrist 22g intact and patent infusing IVF per orders. Patient turned with minimal assistance, sacrum intact, no redness noted. Sacral Optifoam in place as preventative. Patient turned and repositioned. Bed low locked position with side rails up x 3 and call light within reach, bed alarm on. Instructed on POC and to call for assist PRN, will continue to monitor for changes Q1hr and PRN.
--- NOTE | 2019-05-15 20:00 | NUR ---
[facility] will be going into room 9513. phone number to call for report [phone] ext [phone].
--- NOTE | 2019-05-15 20:40 | NUR ---
Called [facility] report given to Thao MARTINEZ.
--- NOTE | 2019-05-15 21:00 | NUR ---
Called family updated on status called and spoke with Lucie, patients daughter, password verified. Updated on room number and transportation. Lucie verbalized understanding. Addressed questions and concerns. Will continue care.
--- NOTE | 2019-05-15 21:15 | NUR ---
Called [facility] for transportation eta 30 mins
[2019-05-15 21:30] VITALS: BP 108/63
--- NOTE | 2019-05-15 21:30 | NUR ---
Family called spoke with Lucie addressed questions and concerns regarding location and transportation, Lucie verbalized understanding.
[2019-05-15] MEDS: ATORVASTATIN 20 MG TAB PO SCH (21:31)
[2019-05-15] MEDS: SENNA 8.6 MG TAB PO SCH (21:31)
--- NOTE | 2019-05-15 21:45 | NUR ---
Family called spoke with Lucie, she is concerned about long drive to hospital, informed Lucie she will be transported via ambulance with paramedics to provide care during transportation. Lucie has many concerns regarding transport after speaking with her mothers outpatient nurse Christiana and "thinks it is best she is close by" states, "I am my mothers power of stamps or coins salesperson, I am requesting to cancel the transfer, you can not take her...this is what is best for her with all her health issues...my mother can come back home and Christiana, my mothers nurse, will take care of her at home." Informed Lucie due to her mothers fall the doctors plan of care for her diagnosis and findings are to transfer to a hospital that has a spinal editorial specialist as we do not have a spinal editorial specialist, Lucie verbalized understanding but still refuses transfer. Will informed charge account identification clerk and MD.
--- NOTE | 2019-05-15 22:00 | NUR ---
Breanna Laughlin NP RE: family request to cancel transfer awaiting call back, will continue care.
--- NOTE | 2019-05-15 22:00 | NUR ---
[facility] arrived for sisal picker notified [facility] transport family is request to cancel transfer.
--- NOTE | 2019-05-15 22:15 | NUR ---
landscaping and groundskeeping laborer spoke with family updated electrical discharge machine operator Andrei on family request to cancel transfer, electrical discharge machine operator Cleve called and spoke with patients daughter Lucie as secondary witness to verify request to cancel transfer. per electrical discharge machine operator Andrei, Lucie verbalized understanding of patients needs and plan of care for spinal capital equipment specialist at facility with higher level of care, requesting no surgery and wants her mother to be discharged back to [facility].
--- NOTE | 2019-05-15 22:20 | NUR ---
Received call back from FABIAN Laughlin updated on patient status for family request to cancel transfer, per FABIAN Laughlin "already talked to [facility] Manager, keep her here." Will carry out orders and continue care.
--- NOTE | 2019-05-15 22:28 | NUR ---
Called [facility] to cancel transportation
--- NOTE | 2019-05-15 23:00 | NUR ---
Called [facility] updated on cancelled transfer spoke with Thao MARTINEZ
[2019-05-16] MEDS: AMPICILLIN INJ 500 MG in SODIUM CHL 0.9% 50 ML IV SCH ×4 (00:08→18:00)
[2019-05-16] MEDS: HYDROcodone-ACET 7.5/325MG TAB PO PRN ×2 (00:09→14:45)
[2019-05-16] MEDS: POTASSIUM CHLORIDE 20 MEQ in D5W 5% 1,000 ML IV SCH ×2 (00:09→09:40)
[2019-05-16 05:00] VITALS: BP 99/53
[2019-05-16 06:34] LABS: Basophils # (auto) 0 uL; Basophils % (auto) 0.4 % (0.0-2.0); Eosinophils # (auto) 0 uL; Hematocrit 29.7 % (36.0-46.0); Hemoglobin 9.6 g/dL (12.2-16.2); Lymphocytes # (auto) 0.7 uL; Lymphocytes % (auto) 11.2 % (10.0-50.0); Mean Corpuscular Hemoglobin 31.4 pg (28.0-32.0); Mean Corpuscular Hgb Conc. 32.4 g/dL (32.0-36.0); Mean Corpuscular Volume 96.9 fL (80.0-100.0); Monocytes # (auto) 0.2 uL; Monocytes % (auto) 3.4 % (0.0-12.0); Neutrophils # (auto) 5.6 uL; Platelet Count (auto) 219 10^3/uL (140-450); Red Blood Cells 3.07 10^6/uL (4.0-5.20); Red Cell Distribution Width 14.5 % (11.8-14.3); White Blood Cell 6.6 10^3/uL (4.4-10.8)
[2019-05-16 06:47] LABS: Calcium 8.2 mg/dL (8.5-10.1); Potassium 4.3 mmol/L (3.5-5.1)
--- NOTE | 2019-05-16 07:05 | NUR ---
Closing note patient resting in bed with oxygen on at 2L via NC, no s/s of distress. IV intact and patent. Kim intact and draining to gravity. Bed low locked position with side rails up x 2 and call light within reach, bed alarm on. Endorsed care to day shift RN.
[2019-05-16 08:00] VITALS: BP 130/72
--- NOTE | 2019-05-16 08:10 | NUR ---
PT RESTING IN BED. PT REPORTS SHE IS COLD. MULTIPLE BLANKETS NOTED ON PATIENT AND NIGHT NURSE REPORTS SHE TURNED UP THERMOSTAT. PT REPORTS 10/10 PAIN IN BACK, AND APPEARS ANXIOUS. PT HAS SCHEDULED PAIN MEDICATION THIS AM AND PRN ATIVAN GIVEN. ABDOMINAL INCISION CLEAN DRY AND IN TACT. NO DRAINAGE NOTED ON PRIMAPORE DRESSING. NO ERYTHEMA OR EDEMA NOTED AT SITE. 150 MLS CLEAR STRAW COLORED URINE DRAINED FROM SOUZA, PT REPOSITIONED. PT ENCOURAGED TO USE CALL LIGHT PRN, WILL CONTINUE TO MONITOR. Addendum: 05/16/19 at 0850 by PANFILO CAMARGO RN BED ALARM ON.
[2019-05-16] MEDS: LORazepam 0.5 MG TAB PO PRN (08:18)
[2019-05-16] MEDS: CALCIUM W/VIT D (600MG/400IU) TAB PO SCH ×2 (09:40→18:00)
[2019-05-16] MEDS: LEVOFLOXACIN 500MG 100 ML IV SCH (09:40)
[2019-05-16] MEDS: PANTOPRAZOLE 40 MG TAB PO SCH (09:47)
[2019-05-16] MEDS: MORPHINE SULF 15mg ER tab PO SCH (09:48)
[2019-05-16] MEDS: DexAMETHasone 4 MG TAB PO SCH (09:49)
[2019-05-16] MEDS: ASPirin 81 mg TAB PO SCH (09:49)
[2019-05-16] MEDS: CARVEDILOL 3.125 MG TAB PO SCH (09:50)
[2019-05-16] MEDS: ENOXAPARIN SOD 30 MG/0.3 ML SYRINGE SC SCH (09:51)
[2019-05-16] MEDS: LIDOCAINE 5% TOPICAL PATCH TOP SCH (09:51)
--- NOTE | 2019-05-16 10:02 | NUR ---
Pt repositioned to left side, 225 mls clear yellow urine noted in Kim.
--- NOTE | 2019-05-16 11:43 | NUR ---
SPOKE WITH DR FAIRBANKS, NOTIFIED PT HAD A BED AT [facility] BUT REFUSED. MD QUINONES.
[2019-05-16 12:00] VITALS: BP 141/66
--- NOTE | 2019-05-16 12:04 | NUR ---
Spoke with pt daughter. daughter reports she wants patient to be discharged home with [facility], and patient will be going on hospice to manage her pain. Notified Dr Dunham. Called Felisha Gentile and left message notifying her of daughters wishes. Awaiting call back.
--- NOTE | 2019-05-16 12:11 | NUR ---
PT REPOSITIONED TO [facility].
--- NOTE | 2019-05-16 13:24 | NUR ---
HOSPICE HERE FROM [place] TO SPEAK WITH PATIENT.
--- NOTE | 2019-05-16 14:40 | NUR ---
PT REPOSITIONED TO RIGHT SIDE. PT REPORTS SHE IS STILL IN PAIN. PRN PAIN MEDICATION.
--- NOTE | 2019-05-16 15:58 | NUR ---
re-assessment Per consult dc planning per daughter request: [facility]. I called patients daughter Lucie and per Lucie she has already spoken to [facility] and wants order sent to them. I faxed to [facility] ph: [phone] fx: [phone] per [place] fax has been received and Kayleigh will evaluate. Lucie has signed all consents and equipment has been delivered to room and board [id number] [place] [address] . Patient will be transported home by [facility] transport at 5pm today post discharge. Lucie verbalized understanding and agreed to discharge plan home. Addendum: 05/16/19 at 1608 by Felisha MURRY Amended: Links added.
[2019-05-16 16:51] VITALS: BP 124/72
--- NOTE | 2019-05-16 18:04 | NUR ---
SHANE MARQUEZ, PT CAREGIVER CAME TO [employer] PATIENT. SHANE REPORTS PATIENT'S DAUGHTER SPOKE WITH [facility]. PT DAUGHTER TOLD THEM SHE WANTS ANDRES TO [employer] PATIENT. ANDRES REPORTS SHE CAN STILL CALL [facility] TO [employer]BER PATIENT. EDUCATED ANDRES PT HAS SPINAL INJURY. PATIENT REPORTED SHE WAS IN PAIN EVERY TIME SHE WAS TURNED. ANDRES NOTIFIED PATIENT WILL BE IN PAIN TRYING TO GET IN AND OUT OF WHEEL CHAIR AND CAR WITH SPINAL INJURY. ANDRES AGREED, SHE REPORTS SHE WILL CALL [facility] BACK AND REQUEST TRANSPORT BE SET UP AGAIN.
--- NOTE | 2019-05-16 18:39 | NUR ---
[facility] HERE TO STEWARD/STEWARDESS LOUNGE PATIENT. PATIENT LEAVING VIA GURNEY. NEW PRESCRIPTION GIVEN TO [facility] PERSONAL TO GIVE TO CAREGIVER.
--- NOTE | 2019-05-16 19:00 | NUR ---
CALLED PT DAUGHTER TO CLARIFY DNR ORDER. DAUGHTER, JAIME, CONFIRMS, PATIENT IS A DO NOT RESUSCITATE IN THE EVENT THAT THE PATIENT'S HEART STOPS. DAUGHTER REPORTS, NO MEDICAL INTERVENTION IS TO BE TAKEN AND THE PATIENT IS READY TO PASS AND SUFFERS FROM A GREAT DEAL OF PAIN AND DEPRESSION. [facility] NOTIFIED.
--- NOTE | 2019-05-16 19:18 | NUR ---
[facility] WANTS COPY OF CODE STATUS, NONE FOUND IN CHART. PAGED DR TREVINO, NEED SIGNED COPY AND HE WAS MD WHO ORDERED DNR. DR TREVINO CALLED BACK. REPORTS HE DOES NOT NEED TO SIGN COPY, HOSPICE DOCTOR WILL HAVE TO DO A WHOLE OTHER ORDER FOR DNR ONCE PT GOES ON HOSPICE. [facility] STILL WANTS TO KNOW HER CODE STATUS. Addendum: 05/16/19 at 1958 by PANFILO CAMARGO RN OCCURRED AT 1849
--- NOTE | 2019-05-16 19:30 | NUR ---
Discharge instructions given as ordered. Encourage to follow up with PMD as instructed. All questions and concerns addressed. Patient verbalized understanding. Medication reconciliation form completed and copy given to patient's veterinarian laboratory animal care. New prescription given to [facility] transport staff as caregiver had gone home. IV removed with catheter intact, pressure dressing applied. Kim catheter left in place per MD order. Patient taken to vehicle via gurney with all personal belongings, accompanied by staff. No distress noted at time of departure.
== END 2019-05-16 17:00 | disposition hospice, home (50) | DRG 542 ==
LOC: EDBD 05:52 → ER 05:52 → TELE 05:53 → TELE-WESTW 15:44 → WEST WING 05-12 15:13
PROVIDERS: ADMIT Internal Medicine; ATTEND Internal Medicine
DX: M48.54XA Collapsed vertebra, not elsewhere classified, thoracic region, initial encounter for fracture (principal); N17.0 Acute kidney failure with tubular necrosis; E43 Unspecified severe protein-calorie malnutrition; N39.0 Urinary tract infection, site not specified; I13.0 Hypertensive heart and chronic kidney disease with heart failure and stage 1 through stage 4 chronic kidney disease, or unspecified chronic kidney disease; J96.10 Chronic respiratory failure, unspecified whether with hypoxia or hypercapnia; I50.32 Chronic diastolic (congestive) heart failure; Z68.1 Body mass index [BMI] 19.9 or less, adult; E16.2 Hypoglycemia, unspecified; J44.9 Chronic obstructive pulmonary disease, unspecified; M48.061 Spinal stenosis, lumbar region without neurogenic claudication; E78.5 Hyperlipidemia, unspecified; F03.90 Unspecified dementia, unspecified severity, without behavioral disturbance, psychotic disturbance, mood disturbance, and anxiety; Z66 Do not resuscitate; N18.9 Chronic kidney disease, unspecified; M48.04 Spinal stenosis, thoracic region; W18.39XA Other fall on same level, initial encounter; G89.29 Other chronic pain; Z51.5 Encounter for palliative care; D50.9 Iron deficiency anemia, unspecified; B96.5 Pseudomonas (aeruginosa) (mallei) (pseudomallei) as the cause of diseases classified elsewhere; B95.2 Enterococcus as the cause of diseases classified elsewhere; Z90.5 Acquired absence of kidney; Z90.49 Acquired absence of other specified parts of digestive tract; Z87.440 Personal history of urinary (tract) infections; Z90.710 Acquired absence of both cervix and uterus; Y93.89 Activity, other specified; Y92.128 Other place in nursing home as the place of occurrence of the external cause; Y99.8 Other external cause status; Z90.721 Acquired absence of ovaries, unilateral; Z98.49 Cataract extraction status, unspecified eye; Z79.899 Other long term (current) drug therapy
CPT/HCPCS: 36415; 70450; 72125; 72128; 72131; 73010; 73030; 80048; 80053; 81001; 83735; 83880; 84484; 85025; 87081; 87086; 87088; 87186; 93005; 96365; 96366; 96375; G0378; J0696; J1956; J2405